=== PATIENT | male | born 1970 | race Two or more races ===

== ENCOUNTER 2020-04-29 | Inpatient (IN) | payer MEDICAID, OTHER ==
[~2020-04-29] VITALS: Ht 167.6 cm; Wt 43.7 kg
[2020-04-29] VITALS (36 sets, daily range): BP systolic 96–226; BP diastolic 41–134
[2020-04-29 00:31] LABS: BASOPHILS % 0.4 % (0.0-2.0); EOSINOPHILS % 1.3 % (0.0-5.0); HEMATOCRIT. 27.5 % (42.0-52.0); HEMOGLOBIN. 9.7 g/dL (14.0-18.0); LYMPHOCYTES % 11.8 % (20.0-50.0); MEAN CORPUSCULAR HEMOGLOBIN 29.8 pg (28.0-32.0); MEAN CORPUSCULAR VOLUME 84.9 fL (80.0-94.0); MEAN PLATELET VOLUME 7.2 fl (7.4-10.4); MONOCYTES % 4.7 % (2.0-8.0); NEUTROPHILS % 81.8 % (40.0-76.0); PLATELET 297 x1000/uL (130-400); RED BLOOD CELL COUNT 3.24 mill/uL (4.7-6.1); RED CELL DISTRIBUTION WIDTH 17.4 % (11.6-14.6)
[2020-04-29 00:36] LABS: CHLORIDE 74 mEq/L (98-107)
[2020-04-29 00:40] LABS: ETHANOL BLOOD < 10 mg/dL
[2020-04-29] MEDS ORDERED: CALCIUM GLUCONATE 100MG/ML 10ML VIAL IV ONE (01:15)
[2020-04-29] MEDS ORDERED: SODIUM CHLORIDE 3% 100 ML IV SCH (01:30)
[2020-04-29] MEDS ORDERED: CALCIUM GLUCONATE 1,000 MG in DEXT 5% WATER 100 ML IV SCH (02:00)
[2020-04-29 04:47] LABS: BG BASE EXCESS -1.2 mmol/L (-2.0-2.0); BG CARBOXYHEMOGLOBIN 0.3 % (0.5-1.5); BG DEOXYHEMOGLOBIN 1.8 % (0.0-5.0); BG FRACTION INSPIRED OXYGEN 28; BG HCO3 ACT 22.7 mmol/L (22.0-26.0); BG METHEMOGLOBIN 0.1 % (0.0-1.5); BG OXYGEN SATURATION 98.2 % (92.0-98.5); BG OXYHEMOGLOBIN 97.8 % (94.0-97.0); BG PCO2 35.1 mmHg (35.0-45.0); BG PH 7.428 (7.350-7.450); BG PO2 120.6 mmHg (75.0-100.0); BG SAMPLE SITE RIGHT BRACHIAL; BG TOTAL HEMOGLOBIN 11.3 g/dL (12.0-18.0); BG VENT MODE NASAL CANNULA
[2020-04-29 06:00] LABS: BASOPHILS % 0.3 % (0.0-2.0); EOSINOPHILS % 0.7 % (0.0-5.0); HEMATOCRIT. 29.1 % (42.0-52.0); LYMPHOCYTES % 10.4 % (20.0-50.0); MEAN CORPUSCULAR HEMOGLOBIN 29.2 pg (28.0-32.0); MEAN CORPUSCULAR VOLUME 84.8 fL (80.0-94.0); MEAN PLATELET VOLUME 7.3 fl (7.4-10.4); MONOCYTES % 3.9 % (2.0-8.0); NEUTROPHILS % 84.7 % (40.0-76.0); PLATELET 355 x1000/uL (130-400); RED BLOOD CELL COUNT 3.43 mill/uL (4.7-6.1); RED CELL DISTRIBUTION WIDTH 17.3 % (11.6-14.6)
[2020-04-29 06:04] LABS: CHLORIDE 74 mEq/L (98-107)
[2020-04-29 06:48] LABS: CLARITY URINE CLOUDY (CLEAR); COLOR URINE YELLOW (YELLOW); KETONES URINE NEGATIVE (NEGATIVE); LEUKOCYTE ESTERASE URINE 3+ (NEGATIVE); NITRITE URINE NEGATIVE (NEGATIVE); OCCULT BLOOD URINE TRACE (NEGATIVE); PH URINE 8.5 (4.5-8.0); PROTEIN URINE 1+ (NEGATIVE); SPECIFIC GRAVITY URINE 1.012 (1.005-1.030); UROBILINOGEN URINE 0.2 E.U./dL (0.2-1.0)
[2020-04-29] MEDS ORDERED: SODIUM CHLORIDE 3% 500 ML IV ONE (07:00)
[2020-04-29 07:13] LABS: *AMPHETAMINES SCREEN URINE NEGATIVE (NEGATIVE); *BARBITURATES SCREEN URINE NEGATIVE (NEGATIVE); *BENZODIAZEPINES SCREEN URINE NEGATIVE (NEGATIVE); *COCAINE SCREEN URINE NEGATIVE (NEGATIVE); METHADONE URINE SCREEN NEGATIVE (NEGATIVE); OPIATES URINE SCREEN NEGATIVE (NEGATIVE)
[2020-04-29 07:15] LABS: CANNABINOID URINE SCREEN NEGATIVE (NEGATIVE); PHENCYCLIDINE URINE SCREEN NEGATIVE (NEGATIVE)
[2020-04-29] MEDS ORDERED: SODIUM CHLORIDE 3% 500 ML IV SCH ×2 (07:15→09:00)
[2020-04-29] MEDS ORDERED: LORAZEPAM 2MG/ML CPJ IV PRN (07:45)
[2020-04-29] MEDS ORDERED: ONDANSETRON HCL 4MG/2ML INJ IV PRN (07:45)
[2020-04-29 07:55] LABS: SODIUM URINE RANDOM 86 mEq/L
[2020-04-29 08:21] LABS: FERRITIN 1581 ng/mL (22-322)
[2020-04-29] MEDS: HEPARIN 5000 UNITS/ML VIAL SUBCUT SCH ×2 (09:00→21:32)
[2020-04-29] MEDS: LEVETIRACETAM 500MG/5ML CUP PO SCH ×2 (09:00→21:32)
[2020-04-29 09:15] LABS: FOLIC ACID (FOLATE) SERUM >20 ng/mL ng/mL (>5.38)
[2020-04-29 09:27] LABS: VITAMIN B12 SERUM 1033 pg/mL (211-911)
[2020-04-29] MEDS ORDERED: LIDOCAINE HCL 1% 20ML VIAL (Pyxis) INJ ONE (10:03)
[2020-04-29] MEDS: SODIUM CHLORIDE 3% 500 ML IV SCH (10:41)
[2020-04-29 10:57] LABS: CHLORIDE 75 mEq/L (98-107)
[2020-04-29] MEDS ORDERED: MAGNESIUM 2 G PREMIX 50 ML IV SCH (11:00)
[2020-04-29 12:36] LABS: CHLORIDE 76 mEq/L (98-107)
[2020-04-29] MEDS ORDERED: ARIP30TA17 MT (15:01)
[2020-04-29] MEDS ORDERED: ASPI-1158 PO (15:04)
[2020-04-29] MEDS ORDERED: DOCU250C69 PO (15:04)
[2020-04-29] MEDS ORDERED: FAMO20TA8 PO (15:06)
[2020-04-29] MEDS ORDERED: FOLI-43 MT (15:21)
[2020-04-29] MEDS ORDERED: ASCO-339 PO (15:21)
[2020-04-29] MEDS ORDERED: FOLI-43 PO (15:21)
[2020-04-29] MEDS ORDERED: FLUO40CA49 PO (15:21)
[2020-04-29] MEDS ORDERED: LEVE500T19 PO (15:21)
[2020-04-29] MEDS ORDERED: OMEP20CA14 PO (15:21)
[2020-04-29] MEDS ORDERED: VANC125C5 PO (15:21)
[2020-04-29] MEDS ORDERED: TRAZ-252 PO (15:21)
[2020-04-29] MEDS ORDERED: LEVO150T8 PO (15:21)
[2020-04-29 16:50] LABS: CHLORIDE 80 mEq/L (98-107)
[2020-04-29] MEDS ORDERED: ACETAMINOPHEN 325MG TABLET PO PRN (18:15)
[2020-04-29] MEDS ORDERED: HYDROCODONE/ACETAMINOPHEN 5/325MG TABLET PO PRN (18:15)
[2020-04-29] MEDS ORDERED: IPRATROPIUM/ALBUTEROL 0.5-3(2.5)MG/3ML NEB HHN PRN (18:15)
[2020-04-29] MEDS ORDERED: CLONIDINE 0.1MG TABLET PO PRN (18:15)
[2020-04-29 20:42] LABS: CHLORIDE 84 mEq/L (98-107)
[2020-04-29] MEDS ORDERED: POTASSIUM CHLORIDE INJ 40 MEQ in DEXT 5% WATER 250 ML IV SCH (21:00)
[2020-04-29] MEDS: ACETAMINOPHEN 325MG TABLET PO PRN (23:55)
[2020-04-30] VITALS (41 sets, daily range): BP systolic 63–146; BP diastolic 22–80
[2020-04-30] MEDS: SODIUM CHLORIDE 3% 500 ML IV SCH
[2020-04-30 05:41] LABS: BASOPHILS % 0.5 % (0.0-2.0); EOSINOPHILS % 0.5 % (0.0-5.0); HEMATOCRIT. 30.4 % (42.0-52.0); HEMOGLOBIN. 10.5 g/dL (14.0-18.0); LYMPHOCYTES % 15.4 % (20.0-50.0); MEAN CORPUSCULAR HEMOGLOBIN 29.7 pg (28.0-32.0); MEAN CORPUSCULAR VOLUME 86.2 fL (80.0-94.0); MEAN PLATELET VOLUME 7.7 fl (7.4-10.4); MONOCYTES % 5.7 % (2.0-8.0); NEUTROPHILS % 77.9 % (40.0-76.0); PLATELET 303 x1000/uL (130-400); RED BLOOD CELL COUNT 3.52 mill/uL (4.7-6.1)
[2020-04-30 05:50] LABS: CHLORIDE 94 mEq/L (98-107)
[2020-04-30 05:53] LABS: PHOSPHORUS 3.7 mg/dL (2.5-4.9)
[2020-04-30] MEDS: LEVETIRACETAM 500MG/5ML CUP PO SCH ×2 (08:32→20:21)
[2020-04-30] MEDS: HEPARIN 5000 UNITS/ML VIAL SUBCUT SCH ×2 (08:32→20:21)
[2020-04-30] MEDS: MAGNESIUM OXIDE 400MG TABLET NG SCH (08:33)
[2020-04-30 12:25] LABS: CHLORIDE 98 mEq/L (98-107)
[2020-04-30] MEDS ORDERED: DEXT 5%/0.45% NACL 1000ML 1,000 ML IV SCH (13:30)
[2020-04-30 18:27] LABS: CHLORIDE 102 mEq/L (98-107)
[2020-04-30] MEDS ORDERED: DEXTROSE 5% WATER 1,000 ML IV SCH (18:45)
[2020-04-30] MEDS: CARVEDILOL 3.125 MG TABLET GT SCH (20:20)
[2020-05-01] VITALS (46 sets, daily range): BP systolic 91–123; BP diastolic 50–89
[2020-05-01 01:19] LABS: CHLORIDE 99 mEq/L (98-107)
[2020-05-01] MEDS ORDERED: DEXT 5%/0.45% NACL 1000ML 1,000 ML IV SCH (01:45)
[2020-05-01 05:52] LABS: BASOPHILS % 0.6 % (0.0-2.0); EOSINOPHILS % 0.4 % (0.0-5.0); LYMPHOCYTES % 16.3 % (20.0-50.0); MEAN CORPUSCULAR HEMOGLOBIN 29.5 pg (28.0-32.0); MEAN CORPUSCULAR VOLUME 88.9 fL (80.0-94.0); MEAN PLATELET VOLUME 8.6 fl (7.4-10.4); MONOCYTES % 7.7 % (2.0-8.0); PLATELET 209 x1000/uL (130-400); RED BLOOD CELL COUNT 3.01 mill/uL (4.7-6.1)
[2020-05-01 06:01] LABS: CHLORIDE 98 mEq/L (98-107)
[2020-05-01 06:05] LABS: HEMATOCRIT. 26.8 % (42.0-52.0); HEMOGLOBIN. 8.9 g/dL (14.0-18.0)
[2020-05-01 06:09] LABS: PHOSPHORUS 2.7 mg/dL (2.5-4.9)
[2020-05-01] MEDS: CARVEDILOL 3.125 MG TABLET GT SCH ×2 (08:41→20:04)
[2020-05-01] MEDS ORDERED: SODIUM CHLORIDE 0.9% 500 ML IV ONE (09:00)
[2020-05-01] MEDS: HEPARIN 5000 UNITS/ML VIAL SUBCUT SCH ×2 (09:16→20:03)
[2020-05-01] MEDS: MAGNESIUM OXIDE 400MG TABLET NG SCH (09:16)
[2020-05-01] MEDS: LEVETIRACETAM 500MG/5ML CUP PO SCH ×2 (09:17→20:03)
[2020-05-01 12:29] LABS: CHLORIDE 100 mEq/L (98-107)
[2020-05-01] MEDS: SODIUM CHLORIDE 0.9% 1,000 ML IV SCH (18:24)
[2020-05-01 20:00] LABS: CHLORIDE 100 mEq/L (98-107)
[2020-05-02] VITALS (29 sets, daily range): BP systolic 101–133; BP diastolic 51–94
[2020-05-02 05:01] LABS: BASOPHILS % 0.7 % (0.0-2.0); EOSINOPHILS % 1.2 % (0.0-5.0); HEMATOCRIT. 26.2 % (42.0-52.0); HEMOGLOBIN. 8.8 g/dL (14.0-18.0); LYMPHOCYTES % 19.8 % (20.0-50.0); MEAN CORPUSCULAR HEMOGLOBIN 29.9 pg (28.0-32.0); MEAN CORPUSCULAR VOLUME 89.3 fL (80.0-94.0); MEAN PLATELET VOLUME 8.4 fl (7.4-10.4); MONOCYTES % 6.2 % (2.0-8.0); NEUTROPHILS % 72.1 % (40.0-76.0); PLATELET 174 x1000/uL (130-400); RED BLOOD CELL COUNT 2.94 mill/uL (4.7-6.1); RED CELL DISTRIBUTION WIDTH 18.6 % (11.6-14.6)
[2020-05-02 05:20] LABS: CHLORIDE 99 mEq/L (98-107)
[2020-05-02 05:30] LABS: PHOSPHORUS 3.4 mg/dL (2.5-4.9)
[2020-05-02] MEDS: MAGNESIUM OXIDE 400MG TABLET NG SCH (08:58)
[2020-05-02] MEDS: CARVEDILOL 3.125 MG TABLET GT SCH ×2 (08:58→20:42)
[2020-05-02] MEDS: LEVETIRACETAM 500MG/5ML CUP PO SCH ×2 (08:59→20:40)
[2020-05-02] MEDS: HEPARIN 5000 UNITS/ML VIAL SUBCUT SCH ×2 (08:59→20:41)
[2020-05-02 12:13] LABS: CHLORIDE 99 mEq/L (98-107)
[2020-05-03] VITALS (12 sets, daily range): BP systolic 97–119; BP diastolic 52–73
[2020-05-03] MEDS: SODIUM CHLORIDE 0.9% 1,000 ML IV SCH ×2 (02:00→02:17)
[2020-05-03 06:24] LABS: BASOPHILS % 0.9 % (0.0-2.0); EOSINOPHILS % 1.9 % (0.0-5.0); HEMATOCRIT. 26.7 % (42.0-52.0); LYMPHOCYTES % 21.9 % (20.0-50.0); MEAN CORPUSCULAR HEMOGLOBIN 29.8 pg (28.0-32.0); MEAN CORPUSCULAR VOLUME 88.6 fL (80.0-94.0); MEAN PLATELET VOLUME 7.6 fl (7.4-10.4); MONOCYTES % 5.2 % (2.0-8.0); NEUTROPHILS % 70.1 % (40.0-76.0); PLATELET 208 x1000/uL (130-400); RED BLOOD CELL COUNT 3.01 mill/uL (4.7-6.1); RED CELL DISTRIBUTION WIDTH 18.3 % (11.6-14.6)
[2020-05-03 06:50] LABS: CHLORIDE 98 mEq/L (98-107)
[2020-05-03] MEDS: CARVEDILOL 3.125 MG TABLET GT SCH ×2 (09:10→21:00)
[2020-05-03] MEDS: LEVETIRACETAM 500MG/5ML CUP PO SCH ×2 (09:10→21:04)
[2020-05-03] MEDS: MAGNESIUM OXIDE 400MG TABLET NG SCH (09:10)
[2020-05-03] MEDS: HEPARIN 5000 UNITS/ML VIAL SUBCUT SCH ×2 (09:11→21:05)
[2020-05-04] VITALS (9 sets, daily range): BP systolic 94–123; BP diastolic 56–76
[2020-05-04 07:43] LABS: CHLORIDE 94 mEq/L (98-107)
[2020-05-04 07:45] LABS: BASOPHILS % 0.7 % (0.0-2.0); EOSINOPHILS % 2.4 % (0.0-5.0); HEMATOCRIT. 25.5 % (42.0-52.0); HEMOGLOBIN. 8.6 g/dL (14.0-18.0); MEAN CORPUSCULAR HEMOGLOBIN 30.1 pg (28.0-32.0); MEAN CORPUSCULAR VOLUME 89.1 fL (80.0-94.0); MONOCYTES % 5.1 % (2.0-8.0); NEUTROPHILS % 69.8 % (40.0-76.0); PLATELET 204 x1000/uL (130-400); RED BLOOD CELL COUNT 2.87 mill/uL (4.7-6.1)
[2020-05-04 07:49] LABS: PHOSPHORUS 4.5 mg/dL (2.5-4.9)
[2020-05-04] MEDS: LEVETIRACETAM 500MG/5ML CUP PO SCH ×2 (09:59→21:30)
[2020-05-04] MEDS: MAGNESIUM OXIDE 400MG TABLET NG SCH (10:03)
[2020-05-04] MEDS: CARVEDILOL 3.125 MG TABLET GT SCH ×2 (10:03→21:00)
[2020-05-04] MEDS: HEPARIN 5000 UNITS/ML VIAL SUBCUT SCH ×2 (10:20→21:30)
[2020-05-04] MEDS: LISINOPRIL 2.5MG TABLET GT SCH (11:00)
[2020-05-04] MEDS: SODIUM CHLORIDE 0.9% 1,000 ML IV SCH (14:11)
[2020-05-05] VITALS: BP 106/70
[2020-05-05 04:00] VITALS: BP 119/76
[2020-05-05 06:51] LABS: BASOPHILS % 0.7 % (0.0-2.0); EOSINOPHILS % 2.7 % (0.0-5.0); HEMATOCRIT. 27.6 % (42.0-52.0); HEMOGLOBIN. 9.3 g/dL (14.0-18.0); LYMPHOCYTES % 25.1 % (20.0-50.0); MEAN CORPUSCULAR HEMOGLOBIN 30.1 pg (28.0-32.0); MEAN CORPUSCULAR VOLUME 88.8 fL (80.0-94.0); MEAN PLATELET VOLUME 7.7 fl (7.4-10.4); MONOCYTES % 6.3 % (2.0-8.0); NEUTROPHILS % 65.2 % (40.0-76.0); PLATELET 211 x1000/uL (130-400); RED CELL DISTRIBUTION WIDTH 17.9 % (11.6-14.6)
[2020-05-05 06:52] LABS: CHLORIDE 93 mEq/L (98-107)
[2020-05-05 06:58] LABS: PHOSPHORUS 4.7 mg/dL (2.5-4.9)
[2020-05-05 08:00] VITALS: BP 111/93
[2020-05-05] MEDS: MAGNESIUM OXIDE 400MG TABLET NG SCH (08:57)
[2020-05-05] MEDS: LEVETIRACETAM 500MG/5ML CUP PO SCH (08:57)
[2020-05-05] MEDS: CARVEDILOL 3.125 MG TABLET GT SCH ×2 (08:57→21:00)
[2020-05-05] MEDS: LISINOPRIL 2.5MG TABLET GT SCH (08:57)
[2020-05-05] MEDS: HEPARIN 5000 UNITS/ML VIAL SUBCUT SCH ×2 (08:58→22:14)
[2020-05-05] MEDS: SODIUM CHLORIDE 0.9% 1,000 ML IV SCH (09:54)
[2020-05-05 12:00] VITALS: BP 104/65
[2020-05-05] MEDS: DEMECLOCYCLINE HCL 300MG TABLET PO SCH ×2 (14:30→22:14)
[2020-05-05 16:00] VITALS: BP 101/62
[2020-05-05 20:00] VITALS: BP 102/58
[2020-05-06] VITALS: BP 123/59
[2020-05-06 04:00] VITALS: BP 100/57
[2020-05-06] MEDS: DEMECLOCYCLINE HCL 300MG TABLET PO SCH ×3 (06:32→22:02)
[2020-05-06 08:00] VITALS: BP 96/67
[2020-05-06] MEDS: LISINOPRIL 2.5MG TABLET GT SCH (09:00)
[2020-05-06] MEDS: CARVEDILOL 3.125 MG TABLET GT SCH ×2 (09:00→21:00)
[2020-05-06] MEDS: HEPARIN 5000 UNITS/ML VIAL SUBCUT SCH ×2 (09:24→22:02)
[2020-05-06] MEDS: MAGNESIUM OXIDE 400MG TABLET NG SCH (09:24)
[2020-05-06 12:00] VITALS: BP 107/67
[2020-05-06 12:52] LABS: EOSINOPHILS % 2.3 % (0.0-5.0); HEMATOCRIT. 27.5 % (42.0-52.0); HEMOGLOBIN. 9.3 g/dL (14.0-18.0); LYMPHOCYTES % 31.6 % (20.0-50.0); MEAN CORPUSCULAR HEMOGLOBIN 30.3 pg (28.0-32.0); MEAN CORPUSCULAR VOLUME 89.8 fL (80.0-94.0); MEAN PLATELET VOLUME 8.2 fl (7.4-10.4); MONOCYTES % 3.6 % (2.0-8.0); NEUTROPHILS % 61.5 % (40.0-76.0); PLATELET 196 x1000/uL (130-400); RED BLOOD CELL COUNT 3.06 mill/uL (4.7-6.1); RED CELL DISTRIBUTION WIDTH 18.2 % (11.6-14.6)
[2020-05-06 13:34] LABS: CHLORIDE 93 mEq/L (98-107)
[2020-05-06 16:00] VITALS: BP 112/64
[2020-05-06 20:00] VITALS: BP 104/69
[2020-05-07] VITALS: BP 103/63
[2020-05-07 04:00] VITALS: BP 112/80
[2020-05-07] MEDS: DEMECLOCYCLINE HCL 300MG TABLET PO SCH ×3 (05:23→22:00)
[2020-05-07 06:44] LABS: CHLORIDE 93 mEq/L (98-107)
[2020-05-07 06:45] LABS: EOSINOPHILS % 1.7 % (0.0-5.0); HEMATOCRIT. 27.4 % (42.0-52.0); HEMOGLOBIN. 9.3 g/dL (14.0-18.0); LYMPHOCYTES % 24.3 % (20.0-50.0); MEAN CORPUSCULAR HEMOGLOBIN 30.6 pg (28.0-32.0); MEAN CORPUSCULAR VOLUME 89.9 fL (80.0-94.0); MEAN PLATELET VOLUME 7.4 fl (7.4-10.4); MONOCYTES % 6.5 % (2.0-8.0); NEUTROPHILS % 66.5 % (40.0-76.0); PLATELET 206 x1000/uL (130-400); RED BLOOD CELL COUNT 3.05 mill/uL (4.7-6.1); RED CELL DISTRIBUTION WIDTH 18.7 % (11.6-14.6)
[2020-05-07 06:53] LABS: PHOSPHORUS 5.2 mg/dL (2.5-4.9)
[2020-05-07 08:00] VITALS: BP 107/69
[2020-05-07] MEDS: CARVEDILOL 3.125 MG TABLET GT SCH ×2 (09:00→21:00)
[2020-05-07] MEDS: MAGNESIUM OXIDE 400MG TABLET NG SCH (09:46)
[2020-05-07] MEDS: LISINOPRIL 2.5MG TABLET GT SCH (09:48)
[2020-05-07] MEDS: HEPARIN 5000 UNITS/ML VIAL SUBCUT SCH ×2 (09:49→22:49)
[2020-05-07] MEDS: MAGNESIUM OXIDE 400MG TABLET GT SCH (10:15)
[2020-05-07 12:00] VITALS: BP 94/65
[2020-05-07 16:00] VITALS: BP 122/79
[2020-05-07 20:50] VITALS: BP 103/84
[2020-05-08] VITALS: BP 104/70
[2020-05-08 04:00] VITALS: BP 106/70
[2020-05-08 06:47] LABS: BASOPHILS % 1.2 % (0.0-2.0); EOSINOPHILS % 1.4 % (0.0-5.0); HEMATOCRIT. 29.9 % (42.0-52.0); HEMOGLOBIN. 10.1 g/dL (14.0-18.0); LYMPHOCYTES % 27.5 % (20.0-50.0); MEAN CORPUSCULAR HEMOGLOBIN 30.6 pg (28.0-32.0); MEAN CORPUSCULAR VOLUME 90.6 fL (80.0-94.0); MEAN PLATELET VOLUME 7.3 fl (7.4-10.4); MONOCYTES % 7.1 % (2.0-8.0); NEUTROPHILS % 62.8 % (40.0-76.0); PLATELET 215 x1000/uL (130-400); RED CELL DISTRIBUTION WIDTH 18.7 % (11.6-14.6)
[2020-05-08 06:55] LABS: CHLORIDE 91 mEq/L (98-107)
[2020-05-08 07:02] LABS: PHOSPHORUS 6.2 mg/dL (2.5-4.9)
[2020-05-08 08:00] VITALS: BP 102/70
[2020-05-08] MEDS: MAGNESIUM OXIDE 400MG TABLET GT SCH (10:01)
[2020-05-08] MEDS: HEPARIN 5000 UNITS/ML VIAL SUBCUT SCH ×2 (10:01→20:19)
[2020-05-08] MEDS: LISINOPRIL 2.5MG TABLET GT SCH (10:01)
[2020-05-08] MEDS: DEMECLOCYCLINE HCL 300MG TABLET PO SCH ×3 (10:02→22:02)
[2020-05-08] MEDS: CARVEDILOL 3.125 MG TABLET GT SCH ×2 (10:02→20:11)
[2020-05-08 12:00] VITALS: BP 121/59
[2020-05-08 16:00] VITALS: BP 97/52
[2020-05-08 20:00] VITALS: BP 108/60
[2020-05-09] VITALS: BP 96/59
[2020-05-09 04:00] VITALS: BP 113/52
[2020-05-09] MEDS: DEMECLOCYCLINE HCL 300MG TABLET PO SCH ×3 (06:04→21:51)
[2020-05-09 08:00] VITALS: BP 114/66
[2020-05-09] MEDS: CARVEDILOL 3.125 MG TABLET GT SCH ×2 (08:40→21:00)
[2020-05-09] MEDS: HEPARIN 5000 UNITS/ML VIAL SUBCUT SCH ×2 (08:41→21:48)
[2020-05-09] MEDS: LISINOPRIL 2.5MG TABLET GT SCH (08:41)
[2020-05-09 10:55] LABS: BASOPHILS % 1.1 % (0.0-2.0); EOSINOPHILS % 1.9 % (0.0-5.0); HEMATOCRIT. 27.6 % (42.0-52.0); HEMOGLOBIN. 9.4 g/dL (14.0-18.0); MEAN CORPUSCULAR HEMOGLOBIN 30.8 pg (28.0-32.0); MEAN CORPUSCULAR VOLUME 90.3 fL (80.0-94.0); MEAN PLATELET VOLUME 7.4 fl (7.4-10.4); MONOCYTES % 6.3 % (2.0-8.0); NEUTROPHILS % 56.7 % (40.0-76.0); PLATELET 205 x1000/uL (130-400); RED BLOOD CELL COUNT 3.06 mill/uL (4.7-6.1); RED CELL DISTRIBUTION WIDTH 18.8 % (11.6-14.6)
[2020-05-09 11:08] LABS: CHLORIDE 90 mEq/L (98-107)
[2020-05-09 12:00] VITALS: BP 99/62
[2020-05-09] MEDS: SODIUM CHLORIDE 1000MG TABLET PEG SCH ×2 (12:58→17:13)
[2020-05-09 16:00] VITALS: BP 98/65
[2020-05-09] MEDS: LORAZEPAM 1MG TABLET PO PRN (17:13)
[2020-05-09 20:00] VITALS: BP 100/65
[2020-05-10] VITALS: BP 90/54
[2020-05-10 04:00] VITALS: BP 95/52
[2020-05-10] MEDS: DEMECLOCYCLINE HCL 300MG TABLET PO SCH ×2 (05:34→13:50)
[2020-05-10 06:55] LABS: BASOPHILS % 0.9 % (0.0-2.0); EOSINOPHILS % 1.3 % (0.0-5.0); HEMATOCRIT. 32.5 % (42.0-52.0); LYMPHOCYTES % 31.3 % (20.0-50.0); MEAN CORPUSCULAR HEMOGLOBIN 30.5 pg (28.0-32.0); MEAN CORPUSCULAR VOLUME 90.4 fL (80.0-94.0); MEAN PLATELET VOLUME 8.2 fl (7.4-10.4); MONOCYTES % 7.1 % (2.0-8.0); NEUTROPHILS % 59.4 % (40.0-76.0); PLATELET 176 x1000/uL (130-400); RED CELL DISTRIBUTION WIDTH 18.7 % (11.6-14.6)
[2020-05-10 07:07] LABS: CHLORIDE 94 mEq/L (98-107)
[2020-05-10 07:15] LABS: PHOSPHORUS 5.9 mg/dL (2.5-4.9)
[2020-05-10 08:00] VITALS: BP 101/68
[2020-05-10] MEDS: CARVEDILOL 3.125 MG TABLET GT SCH ×2 (09:00→21:09)
[2020-05-10] MEDS: MAGNESIUM OXIDE 400MG TABLET GT SCH (09:39)
[2020-05-10] MEDS: SODIUM CHLORIDE 1000MG TABLET PEG SCH ×2 (09:39→19:19)
[2020-05-10] MEDS: HEPARIN 5000 UNITS/ML VIAL SUBCUT SCH ×2 (09:40→21:09)
[2020-05-10 12:00] VITALS: BP 100/64
[2020-05-10 16:00] VITALS: BP 113/75
[2020-05-10 20:00] VITALS: BP 120/71
[2020-05-10] MEDS: ACETAMINOPHEN 325MG TABLET PO PRN (22:57)
[2020-05-11] VITALS: BP_SYST 115; BP_SYST 63; BP_DIAS 29; BP_DIAS 68
[2020-05-11 04:00] VITALS: BP 108/57
[2020-05-11 07:04] LABS: CHLORIDE 90 mEq/L (98-107)
[2020-05-11 07:13] LABS: EOSINOPHILS % 2.5 % (0.0-5.0); HEMATOCRIT. 29.5 % (42.0-52.0); HEMOGLOBIN. 9.9 g/dL (14.0-18.0); MEAN CORPUSCULAR HEMOGLOBIN 30.5 pg (28.0-32.0); MEAN CORPUSCULAR VOLUME 90.4 fL (80.0-94.0); MEAN PLATELET VOLUME 7.4 fl (7.4-10.4); MONOCYTES % 6.9 % (2.0-8.0); NEUTROPHILS % 58.6 % (40.0-76.0); PLATELET 217 x1000/uL (130-400); RED BLOOD CELL COUNT 3.26 mill/uL (4.7-6.1); RED CELL DISTRIBUTION WIDTH 18.3 % (11.6-14.6)
[2020-05-11 07:14] LABS: PHOSPHORUS 4.4 mg/dL (2.5-4.9)
[2020-05-11 08:00] VITALS: BP 111/70
[2020-05-11] MEDS: CARVEDILOL 3.125 MG TABLET GT SCH ×2 (09:00→21:00)
[2020-05-11] MEDS: SODIUM CHLORIDE 1000MG TABLET PEG SCH ×3 (09:08→18:07)
[2020-05-11] MEDS: HEPARIN 5000 UNITS/ML VIAL SUBCUT SCH ×2 (09:08→21:39)
[2020-05-11 12:00] VITALS: BP 118/81
[2020-05-11] MEDS ORDERED: SODIUM POLYSTYRENE SULFONATE 15 G/60 ML BOT PO SCH (13:00)
[2020-05-11 16:00] VITALS: BP 124/67
[2020-05-11 20:00] VITALS: BP 99/65
[2020-05-11] MEDS: LORAZEPAM 1MG TABLET PO PRN (21:38)
[2020-05-12] VITALS: BP 113/74
[2020-05-12 04:00] VITALS: BP 116/69
[2020-05-12 08:00] VITALS: BP 109/66
[2020-05-12] MEDS: HEPARIN 5000 UNITS/ML VIAL SUBCUT SCH ×2 (08:47→21:02)
[2020-05-12] MEDS: MAGNESIUM OXIDE 400MG TABLET GT SCH (08:47)
[2020-05-12] MEDS: SODIUM CHLORIDE 1000MG TABLET PEG SCH ×3 (08:47→16:37)
[2020-05-12] MEDS: LORAZEPAM 1MG TABLET PO PRN (08:47)
[2020-05-12] MEDS: CARVEDILOL 3.125 MG TABLET GT SCH ×2 (08:52→21:02)
[2020-05-12 15:40] LABS: BASOPHILS % 1.1 % (0.0-2.0); EOSINOPHILS % 2.7 % (0.0-5.0); HEMATOCRIT. 30.5 % (42.0-52.0); HEMOGLOBIN. 10.4 g/dL (14.0-18.0); LYMPHOCYTES % 35.5 % (20.0-50.0); MEAN CORPUSCULAR HEMOGLOBIN 31.1 pg (28.0-32.0); MEAN CORPUSCULAR VOLUME 91.3 fL (80.0-94.0); MEAN PLATELET VOLUME 7.8 fl (7.4-10.4); MONOCYTES % 7.9 % (2.0-8.0); NEUTROPHILS % 52.8 % (40.0-76.0); PLATELET 175 x1000/uL (130-400); RED BLOOD CELL COUNT 3.34 mill/uL (4.7-6.1); RED CELL DISTRIBUTION WIDTH 18.7 % (11.6-14.6)
[2020-05-12 15:47] LABS: CHLORIDE 97 mEq/L (98-107)
[2020-05-12 15:55] LABS: PHOSPHORUS 4.5 mg/dL (2.5-4.9)
[2020-05-12 20:00] VITALS: BP 110/69
[2020-05-13] VITALS: BP 100/68
[2020-05-13 04:00] VITALS: BP 102/58
[2020-05-13 07:19] LABS: BASOPHILS % 0.9 % (0.0-2.0); EOSINOPHILS % 2.9 % (0.0-5.0); HEMATOCRIT. 30.6 % (42.0-52.0); HEMOGLOBIN. 10.3 g/dL (14.0-18.0); LYMPHOCYTES % 32.3 % (20.0-50.0); MEAN CORPUSCULAR HEMOGLOBIN 30.3 pg (28.0-32.0); MEAN CORPUSCULAR VOLUME 90.2 fL (80.0-94.0); MEAN PLATELET VOLUME 7.7 fl (7.4-10.4); MONOCYTES % 6.5 % (2.0-8.0); NEUTROPHILS % 57.4 % (40.0-76.0); PLATELET 194 x1000/uL (130-400); RED BLOOD CELL COUNT 3.39 mill/uL (4.7-6.1); RED CELL DISTRIBUTION WIDTH 19.4 % (11.6-14.6)
[2020-05-13 07:45] LABS: CHLORIDE 100 mEq/L (98-107)
[2020-05-13 07:50] LABS: PHOSPHORUS 4.5 mg/dL (2.5-4.9)
[2020-05-13 08:00] VITALS: BP 109/56
[2020-05-13] MEDS ORDERED: ASCORBIC ACID 500 MG TABLET PO SCH (09:00)
[2020-05-13] MEDS ORDERED: ZINC SULFATE 220 MG ( 50 ) CAPSULE PO SCH (09:00)
[2020-05-13] MEDS: HEPARIN 5000 UNITS/ML VIAL SUBCUT SCH ×2 (10:32→20:44)
[2020-05-13] MEDS: SODIUM CHLORIDE 1000MG TABLET PEG SCH ×2 (10:35→13:14)
[2020-05-13] MEDS: CARVEDILOL 3.125 MG TABLET GT SCH ×2 (10:38→20:52)
[2020-05-13 20:29] VITALS: BP 102/58
== END 2020-05-13 21:17 | DRG 53 ==
LOC: ER → CVICU 01:26 → ENRESERV 02:18 → 5EST 05-02 18:50 → 5WST 05-04 12:40 → 6EST 05-07 20:10
PROVIDERS: ADMIT Internal Medicine; ATTEND Internal Medicine
PROC: B54MZZA Ultrasonography of Right Upper Extremity Veins, Guidance (ICD-10-PCS; 2020-04-29)
PROC: 05HY33Z Insertion of Infusion Device into Upper Vein, Percutaneous Approach (ICD-10-PCS; 2020-04-29)
PROC: 4A00X4Z Measurement of Central Nervous Electrical Activity, External Approach (ICD-10-PCS; principal; 2020-05-03)
DX: G40.909 Epilepsy, unspecified, not intractable, without status epilepticus (principal); E83.42 Hypomagnesemia; E22.2 Syndrome of inappropriate secretion of antidiuretic hormone; I50.22 Chronic systolic (congestive) heart failure; R13.10 Dysphagia, unspecified; L89.896 Pressure-induced deep tissue damage of other site; I73.9 Peripheral vascular disease, unspecified; N39.0 Urinary tract infection, site not specified; R33.9 Retention of urine, unspecified; R62.50 Unspecified lack of expected normal physiological development in childhood; D50.9 Iron deficiency anemia, unspecified; S91.312A Laceration without foreign body, left foot, initial encounter; X58.XXXA Exposure to other specified factors, initial encounter; Z20.828 Contact with and (suspected) exposure to other viral communicable diseases; I42.0 Dilated cardiomyopathy; D72.829 Elevated white blood cell count, unspecified; I11.0 Hypertensive heart disease with heart failure; Z79.899 Other long term (current) drug therapy; Z87.11 Personal history of peptic ulcer disease; Z90.49 Acquired absence of other specified parts of digestive tract; Z79.82 Long term (current) use of aspirin; Y93.89 Activity, other specified; Y92.89 Other specified places as the place of occurrence of the external cause; Y99.8 Other external cause status
CPT/HCPCS: 36415; 36600; 70551; 71045; 76937; 80048; 80053; 80061; 80305; 80320; 81003; 82140; 82375; 82533; 82607; 82728; 82746; 82805; 82962; 83036; 83540; 83550; 83605; 83735; 83930; 83935; 84100; 84145; 84300; 84443; 84484; 85025; 86850; 86900; 87070; 87426; 92610; 93005; 93306; 93923; 93970; 99291; C1725; J0610; J1644; J2405; J3475; J3480; J3490; J7030; J7060; G0480